=== PATIENT | female | born 1970 | race Caucasian/White ===

== ENCOUNTER 2017-12-08 19:14 | Emergency (ER) | payer MEDICARE, BC ==
[~2017-12-08] VITALS: Ht 170.2 cm; Wt 98.9 kg
[2017-12-08 19:36] VITALS: BP 131/89
[2017-12-08] MEDS ORDERED: KETOROLAC TROMETHAMINE INJ 30 MG/ML VIAL ONE (20:20)
[2017-12-08] MEDS ORDERED: KETOROLAC TROMETHAMINE INJ 60 MG/2 ML VIAL IM ONE (20:30)
== END 2017-12-08 20:51 | disposition home or self-care (01) ==
LOC: ER 19:15
DX: M25.462 Effusion, left knee (principal); M25.562 Pain in left knee; Z98.890 Other specified postprocedural states; I87.2 Venous insufficiency (chronic) (peripheral); X50.1XXA Overexertion from prolonged static or awkward postures, initial encounter; Y93.89 Activity, other specified; Y92.89 Other specified places as the place of occurrence of the external cause; Y99.8 Other external cause status
CPT/HCPCS: A4606; J1885; Z7610